=== PATIENT | female | born 1930 | race Caucasian/White ===

== ENCOUNTER 2017-08-09 18:05 | Emergency (ER) | payer OTHER ==
[~2017-08-09] VITALS: Ht 152.4 cm; Wt 54.4 kg
--- NOTE | 2017-08-09 18:10 | NUR ---
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 iv on lfa, 18g, established in field. A/O x 4 at this time. Breathing even and unlabored. no sob, nad, vitals stable. safety and comfort measures in place. awaiting md orders.
--- NOTE | 2017-08-09 18:21 | NUR ---
CALLED [facility], REQUESTED FOR ANY ALLERGY ON FILE TO BE FAXED OVER TO [phone]
[2017-08-09] MEDS ORDERED: IV NS 0.9% 500 ML BAG IV ONE ×2 (18:30→21:30)
--- NOTE | 2017-08-09 18:41 | NUR ---
IV ACCESS ON LFA 18G LOAN TELLER TAKEN OUT, NOTED NOT IN THE VEIN. NEW IV ACCESS INSERTED.
[2017-08-09 18:47] LABS: BASOPHILS # (AUTO) 0.1 /CMM (0.0-0.2); EOSINOPHILS % (AUTO) 1.6 % (0.0-6.0); HEMATOCRIT 36 % (33-45); HEMOGLOBIN 12.7 g/dL (11.5-14.8); LYMPHOCYTES # (AUTO) 1.2 /CMM (0.8-4.8); LYMPHOCYTES % (AUTO) 22.7 % (20.0-44.0); MEAN CORPUSCULAR HGB CONC 35 g/dl (31.0-36.0); MEAN CORPUSCULAR VOLUME 91 fL (82-100); MONOCYTES # (AUTO) 0.4 /CMM (0.1-1.30); MONOCYTES % (AUTO) 7.3 % (2.0-12.0); NEUTROPHILS # (AUTO) 3.3 /CMM (1.8-8.9); NEUTROPHILS % (AUTO) 66.4 % (43.0-81.0); PLATELET COUNT (AUTO) 234 /CMM (150-450); RDW COEFFICIENT OF VARIATION 12.6 (11.5-15.0); RED BLOOD CELL COUNT(AUTO) 3.98 MIL/uL (4.0-5.2); WHITE BLOOD COUNT (AUTO) 5.1 K/uL (4.3-11.0)
[2017-08-09 18:52] LABS: CALCIUM, SERUM 8.7 mg/dL (8.5-10.1); CARBON DIOXIDE 24 mmol/L (21-32); CHLORIDE 102 mmol/L (98-107); CREATININE 1.1 mg/dL (0.6-1.3); GLUCOSE 179 mg/dL (74-106); POTASSIUM 4.9 mmol/L (3.5-5.1); SODIUM SERUM 135 mmol/L (136-145); UREA NITROGEN, BLOOD 31 mg/dL (7-18)
--- NOTE | 2017-08-09 18:57 | NUR ---
[employer] delivery vehicle team technician at bedside.
[2017-08-09 19:01] LABS: TROPONIN I < 0.017 ng/mL (0.00-0.056)
[2017-08-09 20:46] VITALS: BP 141/68
--- NOTE | 2017-08-09 20:48 | NUR ---
CALLED GIL CABRAL MD TO CALL
--- NOTE | 2017-08-09 21:27 | NUR ---
RECEIVED CALL FROM [facility] AND WAS TOLD PT IS BEING TRANSFERRED TO [facility] ED. NUMBER FOR REPORT IS [phone] DR MALDONADO IS THE ACCEPTING MD. ALS TRANSPORT WILL ARRIVE AT 1825
--- NOTE | 2017-08-09 22:04 | NUR ---
kandy blackwell took report for petros
--- NOTE | 2017-08-09 22:28 | NUR ---
Report given to EMT for transport
== END 2017-08-09 22:29 | disposition home or self-care (01) ==
LOC: ER 18:06
DX: R55 Syncope and collapse (principal); J44.9 Chronic obstructive pulmonary disease, unspecified; I12.9 Hypertensive chronic kidney disease with stage 1 through stage 4 chronic kidney disease, or unspecified chronic kidney disease; N18.9 Chronic kidney disease, unspecified; E78.5 Hyperlipidemia, unspecified; F10.10 Alcohol abuse, uncomplicated; Y90.9 Presence of alcohol in blood, level not specified; I25.10 Atherosclerotic heart disease of native coronary artery without angina pectoris; I44.7 Left bundle-branch block, unspecified; K21.9 Gastro-esophageal reflux disease without esophagitis; K58.9 Irritable bowel syndrome, unspecified; Z98.890 Other specified postprocedural states; Z90.710 Acquired absence of both cervix and uterus; Z87.891 Personal history of nicotine dependence
CPT/HCPCS: 36415; 71045; 80048; 84484; 85025; 93005; 96360; 99285; A4606; J7040 ×2; Z7610